=== PATIENT | male | born 1995 | race Caucasian/White ===

== ENCOUNTER 2021-04-05 11:36 | Emergency (ER) | payer BC ==
[~2021-04-05] VITALS: Ht 180.3 cm; Wt 84.5 kg
[2021-04-05] MEDS ORDERED: AZITHROMYCIN 250MGPK PO (13:00)
[2021-04-05] MEDS ORDERED: PROAIR HFA0.09 MG/AC IH (13:00)
[2021-04-05 13:06] VITALS: BP 101/58
== END 2021-04-05 13:10 | disposition home or self-care (01) ==
LOC: ED 11:36
DX: Z20.822 Contact with and (suspected) exposure to COVID-19 (principal)
CPT/HCPCS: J1885